=== PATIENT | male | born 1970 | race Caucasian/White ===

== ENCOUNTER 2016-08-01 08:10 | Emergency (ER) | payer OTHER ==
--- NOTE | ~2016-08-01 | CR142 ---
[facility]. [facility] A Service of [facility] & [facility] RADIOLOGY TEXT RESULTS PATIENT: LANA RAMIREZ LOCATION: SED : 68 UNIT #: [id number] AGE: [address]: Darci Batista MD SEX: M ORDER DR: [id number] [place] [id number] E MR#: [id number] Acc #: [id number] NAME: LANA RAMIREZ : 1970 SEX: M STUDY DATE/TIME: 08/01/2016 8:01 UNIT: SED ROOM: STUDY DESCRIPTION: CR Hand Min 3 Views Rt Attending Physician: Darci Batista M.D. Ordering Physician: Darci Batista M.D. Primary Care Physician: Yaz Golden A.P.R.N. MEDICAL IMAGING REPORT This report is preliminary unless electronic signature is present. EXAM Right hand, 08/01 INDICATION Hand pain with swelling and bruising since last . No trauma. FINDINGS 3 views of the right hand were obtained. There is a comminuted intraarticular fracture involving the proximal to mid fifth middle phalanx. Primary fracture fragments are mildly displaced. No other fractures are seen. The rest of the hand is negative. IMPRESSION Comminuted mildly displaced intraarticular fracture of the fifth middle phalanx. Dictated by... Madhav Mcneil Jr., M.D. THIS IS AN ELECTRONICALLY VERIFIED REPORT Madhav Mcneil Jr., M.D. at 08/01/2016 5:04 PM AUBREY/evens TD: 08/01/2016 10:26 JOB #: [id number] MEDICAL IMAGING REPORT Page 1 of 1
[~2016-08-01 08:10] MED LIST: GLUCOTROL; METFORMIN PO; VICODIN 5/500 T1 TAB PO; VOLTAREN75 MG PO
== END 2016-08-01 08:55 | disposition home or self-care (01) ==
LOC: SED 08:10
DX: S62.626A Displaced fracture of middle phalanx of right little finger, initial encounter for closed fracture (principal); X58.XXXA Exposure to other specified factors, initial encounter
CPT/HCPCS: 29130; 73130; 99283